=== PATIENT | female | born 1960 | race Caucasian/White ===

== ENCOUNTER → 2017-01-08 | Outpatient (CLI) | payer OTHER ==
[~2017-01-08] MED LIST: ALPR0.25 PO; CALC1CAP8 PO; CHOL200012 PO; CLOB15CR VG; ESTR42.53 VG; ESTR8.1S2 TP; IBUP-1222 PO; LACT1CAP43 PO; LORA10TA3 PO; MULT-6 PO; PROG100C4 PO
== END | disposition home or self-care (01) ==
LOC: CFH 11-10 07:54
PROVIDERS: ATTEND Physician Assistant
DX: M19.011 Primary osteoarthritis, right shoulder (principal); M75.91 Shoulder lesion, unspecified, right shoulder; M25.411 Effusion, right shoulder

== ENCOUNTER 2017-05-29 11:23 | Emergency (ER) | payer OTHER ==
[~2017-05-29] VITALS: Ht 154.9 cm; Wt 53.3 kg
[~2017-05-29 11:23] MED LIST changes: -CHOL200012 PO; +CHOL200074 PO; +PROG100C16 PO; -PROG100C4 PO
[2017-05-29 11:30] VITALS: BP 144/84
[2017-05-29] MEDS ORDERED: DIPH,PERTUSS(ACELL),TET VAC/PF 0.5 ML IM-VACC ONE ×2 (12:00→12:21)
[2017-05-29] MEDS ORDERED: BACITRACIN ZINC OINT 500U/GM, 0.9 GM ONE (12:55)
[2017-05-29] MEDS ORDERED: LIDOCAINE 1%, 20ML INFIL ONE (13:00)
== END 2017-05-29 14:21 | disposition home or self-care (01) ==
LOC: ED 13:51
DX: S32.2XXA Fracture of coccyx, initial encounter for closed fracture (principal); S01.311A Laceration without foreign body of right ear, initial encounter; Z87.891 Personal history of nicotine dependence; W10.9XXA Fall (on) (from) unspecified stairs and steps, initial encounter; Y93.89 Activity, other specified; Y92.009 Unspecified place in unspecified non-institutional (private) residence as the place of occurrence of the external cause; Y99.8 Other external cause status
CPT/HCPCS: 12011; 72220; 90471; 90715